=== PATIENT | female | born 1970 | race Caucasian/White ===

== ENCOUNTER 2023-08-07 14:21 | Inpatient (IN) ==
[2023-08-07 15:27] LABS: BASOPHILS # (AUTO) 0.1 X10^3/uL (0.0-0.1); BASOPHILS % (AUTO) 0.7 % (0.2-1.0); EOSINOPHILS # (AUTO) 0.2 x10^3/uL (0.0-0.2); EOSINOPHILS % (AUTO) 1.9 % (0.9-2.9); HEMATOCRIT 33.7 % (36.0-47.0); HEMOGLOBIN 10.9 g/dL (12.0-16.0); LYMPHOCYTES % (AUTO) 15.1 % (21.0-51.0); MEAN CORPUSCULAR HEMOGLOBIN 29.5 pg (27.0-34.0); MEAN CORPUSCULAR HGB CONC 32.4 g/dL (33.0-35.0); MEAN CORPUSCULAR VOLUME 90.8 fL (80.0-100.0); MEAN PLATELET VOLUME 8.2 fL (7.4-11.0); MONOCYTES # (AUTO) 0.8 x10^3/uL (0.3-0.8); MONOCYTES % (AUTO) 5.9 % (0.0-13.0); NEUTROPHILS # (AUTO) 9.9 x10^3/uL (2.2-4.8); NEUTROPHILS % (AUTO) 76.4 % (42.0-75.0); PLATELET COUNT 403 X10^3/uL (150.0-450.0); RED BLOOD COUNT 3.71 X10^6/uL (3.5-5.4); RED CELL DISTRIBUTION WIDTH 13.5 % (11.6-16.5); WHITE BLOOD COUNT 12.9 X10^3/uL (3.6-10.0)
[2023-08-07 15:35] LABS: INR 1.08 (0.8-1.3)
[2023-08-07] MEDS ORDERED: PROVENTIL NEB TX 0.083% 2.5MG/ 3ML NEB PRN (15:36)
[2023-08-07 15:38] LABS: CALCIUM 8.4 mg/dL (8.5-10.1); COR CA(FOR HYPOALB) 9.2 mg/dL (8.5-10.1); CREATININE 1.92 mg/dL (0.55-1.02); POTASSIUM 4.7 mmol/L (3.5-5.1); TOTAL PROTEIN 7.9 g/dL (6.4-8.2)
[2023-08-07 16:13] VITALS: BMI 33.0
[2023-08-07] MEDS: LR 1,000 ML IV 1,000 ML IV SCH (16:30)
[2023-08-07] MEDS ORDERED: HEPARIN SODIUM INJ 5000 UNITS IVP ONE (19:32)
[2023-08-07] MEDS: HEPARIN SODIUM IN D5W 25,000 UNITS/500 ML BAG IV PRN (19:41)
[2023-08-07] MEDS: ZANAFLEX PO SCH (20:34)
[2023-08-07] MEDS: PERCOCET TAB 5/325 MG PO PRN (20:36)
[2023-08-07] MEDS ORDERED: VENTOLIN or PROAIR HFA IN SCH (21:00)
[2023-08-07] MEDS ORDERED: REFLEX: PROVENTIL NEB & PulmiCORT NEB~ NEB SCH (21:00)
[2023-08-07] MEDS: NEURONTIN TAB 600 MG PO SCH (21:13)
--- NOTE | 2023-08-07 21:19 | DR.H&P ---
H&P History & Physical for Day of: H&P Date: 08/07/23 Chief Complaint Chief Complaint: rest pain right leg Allergies Allergies Allergy/AdvReac Type Severity Reaction Status Date / Time Sulfa (Sulfonamide Allergy Verified 07/25/23 06:49 Antibiotics) [SULFA] History of Present Illness History of Present Illness: This is a 52 year old female who has a history of peripheral vascular disease and history of left below knee amputation. Recently seen for ischemia of the right leg and underwent atherectomy and drug-coated balloon angioplasty of a severely diseased right superficial femoral artery and stenting of the left iliac artery. She has continued to have rest pain of the right foot. Patient known to have chronic kidney disease. Currently creatinine is 1.92. Patient continues to smoke cigarettes and has a history of coronary bypass grafting and diabetes with hypertension. Past Medical History Past Medical History: COPD, Coronary Artery Disease, Diabetes, Dyslipidemia and Hypertension Additional Medical History: Chronic kidney disease Past Surgical History Surgical History: Cholecystectomy, Hysterectomy, Joint Replacement and Ortho Surgery Additional Surgical History: history left below knee amputation ,coronary artery bypass grafting Social History Does patient currently use any type of tobacco product: Yes Have you used tobacco products in the last 12 months: Yes Type of Tobacco Use: Cigarettes How many years tobacco product used: 35 Packs per day or dips/chews per day: 1 Does any household member use tobacco: No Alcohol Use: None Drug Use: None Medications Home Medications: Eliquis 2.5 mg BID, Plavix 75 mg daily, aspirin 81 mg daily, vitamin D 1.25 mg daily, Albuterol two Puffs q 12 hours, loratadine 10 mg daily, farxiga 10 mg daily, Zantac 500 mg Q 12 hours, iron sulfate 325 mg daily, Flomax 0.4 mg daily, Lantus insulin as directed, 16 units at bedtime, Symbicort aerosol two Puffs twice a day, cholestyramine daily ,Citalopram 10 mg daily, Neurontin 600 mg qid, Protonix 40 mg daily, Metoprolol extended-release 25 mg BID ,atorvastatin 80 mg daily, Ezetimbe 10 mg daily, losartan 50 mg once a day, NovoLog insulin 16 units before meals as a sliding scale, Percocet 5 mg every 12 hours, Tizanidine 2mg tablets BID, Venlafaxine 1 mg with food BID Labs 08/07/23 15:14 08/07/23 15:14 Labs: Laboratory WBC 12.9 X10^3/uL (3.6-10.0) H 08/07/23 15:14 RBC 3.71 X10^6/uL (3.5-5.4) 08/07/23 15:14 Hgb 10.9 g/dL (12.0-16.0) L 08/07/23 15:14 Hct 33.7 % (36.0-47.0) L 08/07/23 15:14 MCV 90.8 fL (80.0-100.0) 08/07/23 15:14 MCH 29.5 pg (27.0-34.0) 08/07/23 15:14 MCHC 32.4 g/dL (33.0-35.0) L 08/07/23 15:14 RDW 13.5 % (11.6-16.5) 08/07/23 15:14 Plt Count 403 X10^3/uL (150.0-450.0) 08/07/23 15:14 MPV 8.2 fL (7.4-11.0) 08/07/23 15:14 Neut % (Auto) 76.4 % (42.0-75.0) H 08/07/23 15:14 Lymph % (Auto) 15.1 % (21.0-51.0) L 08/07/23 15:14 Vance % (Auto) 5.9 % (0.0-13.0) 08/07/23 15:14 Eos % (Auto) 1.9 % (0.9-2.9) 08/07/23 15:14 Baso % (Auto) 0.7 % (0.2-1.0) 08/07/23 15:14 Neut # (Auto) 9.9 x10^3/uL (2.2-4.8) H 08/07/23 15:14 Lymph # (Auto) 2.0 X10^3/uL (1.3-2.9) 08/07/23 15:14 Vance # (Auto) 0.8 x10^3/uL (0.3-0.8) 08/07/23 15:14 Eos # (Auto) 0.2 x10^3/uL (0.0-0.2) 08/07/23 15:14 Baso # (Auto) 0.1 X10^3/uL (0.0-0.1) 08/07/23 15:14 Absolute Nucleated RBC 0.0 /100WBC 08/07/23 15:14 PT 13.8 SECONDS (11.8-14.3) 08/07/23 15:14 INR Target Range - 08/07/23 15:14 INR 1.08 (0.8-1.3) 08/07/23 15:14 APTT 27.3 SECONDS (22.9-36.5) 08/07/23 15:14 PTT Comment - 08/07/23 15:14 Sodium 138 mmol/L (136-145) 08/07/23 15:14 Corrected Sodium 139 mmol/L (136-145) 08/07/23 15:14 Potassium 4.7 mmol/L (3.5-5.1) 08/07/23 15:14 Chloride 108 mmol/L (98-107) H 08/07/23 15:14 Carbon Dioxide 19.0 mmol/L (21-32) L 08/07/23 15:14 BUN 32 mg/dL (7-18) H 08/07/23 15:14 Creatinine 1.92 mg/dL (0.55-1.02) H 08/07/23 15:14 Est GFR (MDRD) Af Amer 35 (>60) L 08/07/23 15:14 Est GFR (MDRD) Non-Af 29 (>60) L 08/07/23 15:14 Glucose 152 mg/dL (65-99) H 08/07/23 15:14 Calcium 8.4 mg/dL (8.5-10.1) L 08/07/23 15:14 Corrected Calcium 9.2 mg/dL (8.5-10.1) 08/07/23 15:14 Total Bilirubin 0.20 mg/dL (0.2-1.0) 08/07/23 15:14 AST 15 Units/L (15-37) 08/07/23 15:14 ALT 14 Units/L (12-78) 08/07/23 15:14 Alkaline Phosphatase 146 Units/L (46-116) H 08/07/23 15:14 Total Protein 7.9 g/dL (6.4-8.2) 08/07/23 15:14 Albumin 3.0 g/dL (3.4-5.0) L 08/07/23 15:14 Globulin 4.9 g/dL (2.5-4.5) H 08/07/23 15:14 Albumin/Globulin Ratio 0.6 Ratio (1.1-2.1) L 08/07/23 15:14 Review of Systems Constitutional: See HPI Eyes: No Symptoms Reported ENT: No Symptoms Reported Respiratory: Shortness of Breath Cardiovascular: No Symptoms Reported Gastrointestinal: No Symptoms Reported Genitourinary: No Symptoms Reported Musculoskeletal: No Symptoms Reported Skin: No Symptoms Reported Neurological: Other (Neuropathy of legs ) Physical Exam Vital Signs: Vital Signs Temperature 98.3 F Temperature 98.2 F Pulse Rate 79 Pulse Rate 80 Pulse Rate 77 Pulse Rate 73 Pulse Rate 73 Pulse Rate 86 Pulse Rate 75 Pulse Rate 74 Respiratory Rate 18 Respiratory Rate 20 Respiratory Rate 18 Respiratory Rate 25 Respiratory Rate 18 Respiratory Rate 22 Respiratory Rate 29 Respiratory Rate 19 Respiratory Rate 21 Blood Pressure 130/59 Blood Pressure 139/63 Blood Pressure 140/67 Blood Pressure 138/63 Blood Pressure 178/79 Blood Pressure 119/56 Blood Pressure 153/95 Blood Pressure 162/82 O2 Sat by Pulse Oximetry 98 O2 Sat by Pulse Oximetry 99 O2 Sat by Pulse Oximetry 100 O2 Sat by Pulse Oximetry 99 O2 Sat by Pulse Oximetry 100 O2 Sat by Pulse Oximetry 97 O2 Sat by Pulse Oximetry 100 O2 Sat by Pulse Oximetry 100 Oriented: Normal, Time, Person and Place Eyes: Normal Ear: Normal Nose: Normal Throat: Normal Respiratory: Diminished Throughout Cardiovascular: Normal and Other (left below knee amputation, right foot cool with no evidence of cyanosis. Absent posterior tibial Doppler signal problem monophasic signal in the right anterior tibial artery ) : Normal Auscultation: Bowel Sounds: Normal Palpation: Normal Tenderness: Normal Skin: Normal Musculoskeletal: Left (History of left below knee amputation ) Psychiatric: Normal Mood Description: Calm Affect: Normal Speech Pattern: Clear Assessment/Plan (1) Atherosclerosis of [place] arteries of extremities with rest pain, right leg: Status: Acute Plan: will start patient on Heparin drip and obtain CT angiogram of the aorta with run off after hydration due to increased creatinine. If creatinine cannot be corrected may require on table arteriogram to limit the amount of given (2) Type 2 diabetes mellitus without complications: Status: Acute (3) Old myocardial infarction: Status: Acute (4) Tobacco abuse: Status: Acute (5) Dyslipidemia: Status: Acute (6) CKD (chronic kidney disease) stage 3, GFR 30-59 ml/min: Status: Acute
[2023-08-08] MEDS ORDERED: HEPARIN SODIUM INJ 5000 UNITS IVP ONE ×2 (01:56→13:54)
[2023-08-08] MEDS: LR 1,000 ML IV 1,000 ML IV SCH ×2 (03:09→16:52)
[2023-08-08] MEDS: NEURONTIN TAB 600 MG PO SCH ×3 (06:07→22:08)
[2023-08-08 07:55] LABS: BASOPHILS # (AUTO) 0.1 X10^3/uL (0.0-0.1); BASOPHILS % (AUTO) 1.3 % (0.2-1.0); EOSINOPHILS # (AUTO) 0.3 x10^3/uL (0.0-0.2); EOSINOPHILS % (AUTO) 2.7 % (0.9-2.9); HEMATOCRIT 31.6 % (36.0-47.0); HEMOGLOBIN 10.4 g/dL (12.0-16.0); LYMPHOCYTES # (AUTO) 2.8 X10^3/uL (1.3-2.9); LYMPHOCYTES % (AUTO) 27.4 % (21.0-51.0); MEAN CORPUSCULAR HEMOGLOBIN 29.9 pg (27.0-34.0); MEAN CORPUSCULAR HGB CONC 32.8 g/dL (33.0-35.0); MEAN CORPUSCULAR VOLUME 91.1 fL (80.0-100.0); MEAN PLATELET VOLUME 8.3 fL (7.4-11.0); MONOCYTES # (AUTO) 0.8 x10^3/uL (0.3-0.8); MONOCYTES % (AUTO) 7.4 % (0.0-13.0); NEUTROPHILS # (AUTO) 6.3 x10^3/uL (2.2-4.8); NEUTROPHILS % (AUTO) 61.2 % (42.0-75.0); PLATELET COUNT 273 X10^3/uL (150.0-450.0); RED BLOOD COUNT 3.46 X10^6/uL (3.5-5.4); RED CELL DISTRIBUTION WIDTH 13.4 % (11.6-16.5); WHITE BLOOD COUNT 10.3 X10^3/uL (3.6-10.0)
[2023-08-08] MEDS: CELEXA PO SCH (08:08)
[2023-08-08] MEDS: ASPIRIN EC 81 MG PO SCH (08:08)
[2023-08-08] MEDS: CLARITIN PO SCH (08:08)
[2023-08-08 08:09] LABS: ALBUMIN 2.4 g/dL (3.4-5.0); CARBON DIOXIDE 19.3 mmol/L (21-32); COR CA(FOR HYPOALB) 9.3 mg/dL (8.5-10.1); CREATININE 1.72 mg/dL (0.55-1.02); POTASSIUM 4.6 mmol/L (3.5-5.1); TOTAL PROTEIN 6.8 g/dL (6.4-8.2)
[2023-08-08] MEDS: PROTONIX TAB 40 MG PO SCH (08:09)
[2023-08-08] MEDS: FLOMAX PO SCH (08:09)
[2023-08-08] MEDS: ZANAFLEX PO SCH ×2 (08:09→20:27)
[2023-08-08] MEDS: LIPITOR TAB 80 MG PO SCH (08:09)
[2023-08-08] MEDS: TOPROL XL PO SCH (08:22)
[2023-08-08] MEDS: COZAAR PO SCH (08:22)
[2023-08-08] MEDS: ZETIA TAB 10 MG PO SCH (08:22)
[2023-08-08] MEDS ORDERED: OMNIPAQUE 350 mg/mL 100 mL BTL 100 ML ONE (09:04)
[2023-08-08] MEDS ORDERED: OMNIPAQUE 350 mg/mL 50 mL BTL 50 ML ONE (09:04)
[2023-08-08] MEDS ORDERED: NS 100 ML IV 100 ML ONE (09:04)
[2023-08-08] MEDS: PERCOCET TAB 5/325 MG PO PRN ×2 (10:14→21:22)
--- NOTE | 2023-08-08 12:07 | CT ---
EXAM:CTA AORTA WITH RUNOFFHISTORY:CRITICAL LIMB THREATENING ISCHEMIA; amputation left lower leg, heart surgery, hyst, gbCOMPARISON:NoneTECHNIQUE:CT angiogram of the abdomen and pelvis with bilateral lower extremity runoff obtained without and with IV contrast. 3D MIPS images obtained and reviewed. Dose reduction techniques including Automated Exposure Control (AEC) and adjustment of mA and kV were utilized.FINDINGS:The visualized portions of the lower thorax demonstrate no acute process. Coronary calcifications.No acute osseous abnormality. Multilevel degenerative changes in the visualized spine. Right hip arthroplasty hardware. Left [id number]-susp amputation.No evidence of aortic aneurysm or dissection. The celiac artery, SMA, bilateral renal arteries, and PASCUAL appear patent.The right common, internal, and external iliac arteries are patent with multifocal atherosclerotic disease. The right common femoral and deep femoral arteries are patent with multifocal atherosclerotic disease. The right superficial femoral artery is completely occluded with reconstitution of the popliteal artery which is patent. The right anterior tibial, posterior tibial, and peroneal arteries are patent to the right foot with multifocal atherosclerotic narrowing.The left common and internal iliac arteries are patent with multifocal atherosclerotic disease. Left external iliac artery stent is patent. The left common femoral and deep femoral arteries appear patent. The left superficial femoral artery and superficial femoral artery stent are occluded with left SFA graft appearing patent. The left popliteal artery is patent proximally with complete occlusion in the mid popliteal artery and distal reconstitution above the trifurcation. The anterior tibial, posterior tibial, and peroneal arteries are patent to the amputation stump.The liver, spleen, pancreas, bilateral adrenal glands, and bilateral kidneys demonstrate no acute process. Prior cholecystectomy. Heterogeneous enhancement of the left kidney.No evidence of bowel obstruction. The appendix is unremarkable.The bladder is unremarkable. No free air or fluid. Nonaneurysmal aorta.IMPRESSION:Left external iliac and superficial femoral artery stents/grafts are patent. Short-segment occlusion of the left popliteal artery with reconstitution just proximal to the trifurcation.Occlusion of the right superficial femoral artery with collateral flow and reconstitution at the popliteal artery and patent three-vessel runoff to the right foot.Heterogeneous enhancement of the left kidney which may be due to phase of contrast. Recommend renal ultrasound for further evaluation when clinically feasible.THIS IS AN ELECTRONICALLY VERIFIED FINAL [id number]/08/2023 12:02 PM - Electronically signed by Ward Carbajal MD
[2023-08-08] MEDS ORDERED: HEPARIN SODIUM INJ 5000 UNITS ONE (14:01)
[2023-08-08] MEDS: NovoLIN R (or HumuLIN R) SC PRN ×2 (16:51→22:08)
[2023-08-08] MEDS: HEPARIN SODIUM IN D5W 25,000 UNITS/500 ML BAG IV PRN (17:51)
[2023-08-08] MEDS ORDERED: HIBICLENS WASH EXT ONE (20:15)
[2023-08-08] MEDS ORDERED: HIBICLENS WASH ONE (20:20)
--- NOTE | 2023-08-08 23:29 | NOTE.SOAP ---
Soap Note Note for Day of Date of Exam: 08/08/23 Subjective Data Subjective Data: Patient had atherectomy and drug coated balloon angioplasty of the right SFA . On aspirin and Xarelto. HAs c/o rest pain right leg. Admitted and placed on heparin drip. Had to hydrate for Cr=1.92 and CTA obtained and it shows occlusion of the right SFA and reconstitution of the right popliteal artery with 3 vessel runoff. Objective Data Pulse Rate: 64 Respiratory Rate: 20 Blood Pressure: 128/61 O2 Sat by Pulse Oximetry: 100 Objective Data: Cr=1.72 Right leg with pain of thigh. Mild coolness of the right foot. Well healed right great toe amputation. Assessment Assessment: Critical ischemia right leg with right SFA occlusion. Plan Plan: Has chronic kidney disease and did not want to take to the OR after receiving dye load and would require more dye. Will continue heparin drip and plan intervention right leg on TueAug 10.
[2023-08-09] MEDS: LR 1,000 ML IV 1,000 ML IV SCH ×3 (00:39→21:36)
[2023-08-09 03:55] LABS: BASOPHILS # (AUTO) 0.1 X10^3/uL (0.0-0.1); EOSINOPHILS # (AUTO) 0.3 x10^3/uL (0.0-0.2); EOSINOPHILS % (AUTO) 3.8 % (0.9-2.9); HEMATOCRIT 32.5 % (36.0-47.0); HEMOGLOBIN 10.9 g/dL (12.0-16.0); LYMPHOCYTES # (AUTO) 2.4 X10^3/uL (1.3-2.9); MEAN CORPUSCULAR HGB CONC 33.4 g/dL (33.0-35.0); MEAN CORPUSCULAR VOLUME 89.8 fL (80.0-100.0); MEAN PLATELET VOLUME 8.3 fL (7.4-11.0); MONOCYTES # (AUTO) 0.7 x10^3/uL (0.3-0.8); MONOCYTES % (AUTO) 7.2 % (0.0-13.0); NEUTROPHILS # (AUTO) 5.7 x10^3/uL (2.2-4.8); PLATELET COUNT 329 X10^3/uL (150.0-450.0); RED BLOOD COUNT 3.62 X10^6/uL (3.5-5.4); RED CELL DISTRIBUTION WIDTH 13.9 % (11.6-16.5); WHITE BLOOD COUNT 9.1 X10^3/uL (3.6-10.0)
[2023-08-09 04:07] LABS: ALBUMIN 2.5 g/dL (3.4-5.0); CALCIUM 7.7 mg/dL (8.5-10.1); CARBON DIOXIDE 25.5 mmol/L (21-32); COR CA(FOR HYPOALB) 8.9 mg/dL (8.5-10.1); CREATININE 1.54 mg/dL (0.55-1.02); POTASSIUM 4.1 mmol/L (3.5-5.1); TOTAL PROTEIN 6.9 g/dL (6.4-8.2)
[2023-08-09] MEDS: NovoLIN R (or HumuLIN R) SC PRN ×3 (05:41→16:37)
[2023-08-09] MEDS: NEURONTIN TAB 600 MG PO SCH ×3 (05:42→21:37)
[2023-08-09] MEDS: PERCOCET TAB 5/325 MG PO PRN ×2 (07:20→22:06)
[2023-08-09] MEDS: ASPIRIN EC 81 MG PO SCH (08:42)
[2023-08-09] MEDS: CLARITIN PO SCH (08:43)
[2023-08-09] MEDS: FLOMAX PO SCH (08:43)
[2023-08-09] MEDS: COZAAR PO SCH ×2 (08:43→22:05)
[2023-08-09] MEDS: CELEXA PO SCH (08:43)
[2023-08-09] MEDS: ZANAFLEX PO SCH ×2 (08:44→21:37)
[2023-08-09] MEDS: ZETIA TAB 10 MG PO SCH (08:44)
[2023-08-09] MEDS: PROTONIX TAB 40 MG PO SCH (08:44)
[2023-08-09] MEDS: LIPITOR TAB 80 MG PO SCH (08:44)
[2023-08-09] MEDS: TOPROL XL PO SCH (08:44)
[2023-08-09] MEDS: HEPARIN SODIUM IN D5W 25,000 UNITS/500 ML BAG IV PRN (14:07)
--- NOTE | 2023-08-09 16:08 | NOTE.SOAP ---
Soap Note Note for Day of Date of Exam: 08/09/23 Subjective Data Subjective Data: Rest pain right leg stable. Patient remains on Heparin drip. With hydration creatinine down to 1.54. Planning intervention of occluded right superficial femoral artery tomorrow. Objective Data Pulse Rate: 63 Respiratory Rate: 16 Blood Pressure: 142/66 O2 Sat by Pulse Oximetry: 98 Objective Data: Right foot cool.Cr=1.54, Hgb =10.9 Assessment Assessment: critical ischemia right leg Plan Plan: Right leg arteriogram , probable stenting right superficial femoral artery tomorrow.
[2023-08-09] MEDS ORDERED: HIBICLENS WASH ONE (20:00)
[2023-08-09] MEDS: COLACE CAP 100 MG PO SCH (21:37)
[2023-08-10] MEDS: NEURONTIN TAB 600 MG PO SCH ×3 (05:40→21:00)
[2023-08-10 07:33] LABS: BASOPHILS # (AUTO) 0.1 X10^3/uL (0.0-0.1); BASOPHILS % (AUTO) 0.7 % (0.2-1.0); EOSINOPHILS # (AUTO) 0.3 x10^3/uL (0.0-0.2); EOSINOPHILS % (AUTO) 2.6 % (0.9-2.9); HEMATOCRIT 33.1 % (36.0-47.0); LYMPHOCYTES # (AUTO) 1.9 X10^3/uL (1.3-2.9); LYMPHOCYTES % (AUTO) 18.4 % (21.0-51.0); MEAN CORPUSCULAR HEMOGLOBIN 29.9 pg (27.0-34.0); MEAN CORPUSCULAR HGB CONC 33.1 g/dL (33.0-35.0); MEAN CORPUSCULAR VOLUME 90.3 fL (80.0-100.0); MEAN PLATELET VOLUME 8.7 fL (7.4-11.0); MONOCYTES # (AUTO) 0.7 x10^3/uL (0.3-0.8); MONOCYTES % (AUTO) 7.4 % (0.0-13.0); NEUTROPHILS # (AUTO) 7.1 x10^3/uL (2.2-4.8); NEUTROPHILS % (AUTO) 70.9 % (42.0-75.0); PLATELET COUNT 299 X10^3/uL (150.0-450.0); RED BLOOD COUNT 3.66 X10^6/uL (3.5-5.4); RED CELL DISTRIBUTION WIDTH 13.6 % (11.6-16.5); WHITE BLOOD COUNT 10.1 X10^3/uL (3.6-10.0)
[2023-08-10 07:39] LABS: ALBUMIN 2.4 g/dL (3.4-5.0); CALCIUM 7.8 mg/dL (8.5-10.1); CARBON DIOXIDE 23.7 mmol/L (21-32); COR CA(FOR HYPOALB) 9.1 mg/dL (8.5-10.1); CREATININE 1.71 mg/dL (0.55-1.02); TOTAL PROTEIN 6.7 g/dL (6.4-8.2)
[2023-08-10] MEDS: HEPARIN SODIUM IN D5W 25,000 UNITS/500 ML BAG IV PRN (08:19)
[2023-08-10] MEDS ORDERED: FENTANYL VIAL INJ 100 mcg ONE (08:33)
[2023-08-10] MEDS ORDERED: KETAMINE 50 MG/5 ML-NACL SYRNG ONE (08:33)
[2023-08-10] MEDS ORDERED: VERSED ONE (08:33)
[2023-08-10] MEDS ORDERED: DIPRIVAN VIAL 20 ML ONE (08:34)
[2023-08-10] MEDS ORDERED: ZOFRAN INJ 4 MG VIAL ONE (08:34)
[2023-08-10] MEDS ORDERED: HEPARIN SODIUM INJ 5000 UNITS ONE (08:34)
[2023-08-10] MEDS ORDERED: ROBINUL ONE (08:34)
[2023-08-10] MEDS ORDERED: PRECEDEX INJ VIAL IVP ONE (08:34)
[2023-08-10] MEDS ORDERED: OFIRMEV IV 1000 MG VIAL 1,000 MG/100 ML VIAL IV ONE (08:34)
[2023-08-10] MEDS ORDERED: PEPCID 20 MG VIAL ONE (08:34)
[2023-08-10] MEDS ORDERED: PROTAMINE SULFATE 50 MG VIAL ONE (08:34)
[2023-08-10] MEDS ORDERED: DECADRON INJ ONE (08:35)
[2023-08-10] MEDS ORDERED: NS 1,000 ML IV 1,000 ML ONE (08:37)
[2023-08-10] MEDS ORDERED: ANCEF VIAL 1 GRAM ONE (08:37)
[2023-08-10] MEDS ORDERED: NS 100 ML IV 100 ML ONE (08:37)
[2023-08-10] MEDS ORDERED: MARCAINE 0.5% ONE (09:39)
[2023-08-10] MEDS ORDERED: HEPARIN SODIUM IN D5W 75,000 UNITS/1,500 ML BAG ONE (09:40)
[2023-08-10] MEDS ORDERED: XYLOCAINE 2 % (PLAIN) ONE (10:03)
[2023-08-10] MEDS: ASPIRIN EC 81 MG PO SCH (10:07)
[2023-08-10] MEDS: PROTONIX TAB 40 MG PO SCH (10:07)
[2023-08-10] MEDS: ZANAFLEX PO SCH ×2 (10:08→20:59)
[2023-08-10] MEDS: ZETIA TAB 10 MG PO SCH (10:08)
[2023-08-10] MEDS: TOPROL XL PO SCH ×2 (10:10→10:11)
[2023-08-10] MEDS: MILK OF MAGNESIA PO SCH (10:11)
[2023-08-10] MEDS: FLOMAX PO SCH (10:12)
[2023-08-10] MEDS: CELEXA PO SCH (10:12)
[2023-08-10] MEDS: COZAAR PO SCH (10:12)
[2023-08-10] MEDS ORDERED: VISIPAQUE 100 ML ONE (10:13)
[2023-08-10] MEDS: LIPITOR TAB 80 MG PO SCH (10:13)
[2023-08-10] MEDS: CLARITIN PO SCH (10:13)
[2023-08-10] MEDS ORDERED: EPHEDRINE SULFATE INJ ONE (10:27)
[2023-08-10] MEDS ORDERED: NEO-SYNEPHRINE INJ ONE (10:32)
[2023-08-10] MEDS ORDERED: NS 500 ML IV 500 ML IV ONE (10:46)
[2023-08-10] MEDS: NovoLIN R (or HumuLIN R) SC PRN ×3 (12:55→21:05)
[2023-08-10] MEDS: XARELTO PO SCH ×2 (15:20→20:59)
[2023-08-10] MEDS: PERCOCET TAB 5/325 MG PO PRN (19:29)
[2023-08-10] MEDS: COLACE CAP 100 MG PO SCH (20:59)
[2023-08-10] MEDS: LR 1,000 ML IV 1,000 ML IV SCH (21:52)
[2023-08-11] MEDS: PERCOCET TAB 5/325 MG PO PRN (03:13)
[2023-08-11] MEDS: NEURONTIN TAB 600 MG PO SCH (05:09)
[2023-08-11] MEDS: NovoLIN R (or HumuLIN R) SC PRN (05:37)
[2023-08-11] MEDS: TOPROL XL PO SCH ×2 (05:38→09:23)
[2023-08-11] MEDS: FLOMAX PO SCH (09:20)
[2023-08-11] MEDS: ZANAFLEX PO SCH (09:20)
[2023-08-11] MEDS: PROTONIX TAB 40 MG PO SCH (09:20)
[2023-08-11] MEDS: CLARITIN PO SCH (09:21)
[2023-08-11] MEDS: ASPIRIN EC 81 MG PO SCH (09:21)
[2023-08-11] MEDS: XARELTO PO SCH (09:21)
[2023-08-11] MEDS: LIPITOR TAB 80 MG PO SCH (09:21)
[2023-08-11] MEDS: COZAAR PO SCH (09:22)
[2023-08-11] MEDS: MILK OF MAGNESIA PO SCH (09:22)
[2023-08-11] MEDS: CELEXA PO SCH (09:22)
[2023-08-11] MEDS: ZETIA TAB 10 MG PO SCH (09:22)
--- NOTE | 2023-08-11 09:33 | W.DIS.FURT ---
Summary of Discharge Discharge Summary of Date Date of Exam: 08/11/23 Admission Date Date of Admission: 08/07/23 Admission Diagnosis Hospital Course: 52 year old female with history of coronary artery disease status post CABG in the past. Also with diabetes and hypertension and history of left below knee amputation. She presented several weeks ago with rest pain of the right leg and several weeks ago underwent atherectomy and drug-coated balloon angioplasty of the right superficial femoral artery as well as the stenting of the left iliac artery. Initially she had relief of pain but returned back with rest pain and CT angiogram is consistent with complete occlusion of the right superficial femoral artery. She was maintained on a Heparin drip and taken to the operating Suite on August 10 where she underwent atherectomy and drug-coated stenting of the occluded right superficial femoral artery. She has done well post- procedure and will be discharged home on her usual medications plus Xarelto 2.5 mg BID and daily aspirin 81 mg daily. She will follow up with me in one week. Vital Signs: Vital Signs (72 hours) 08/08/23 23:29 08/09/23 16:08 08/08/23 10:14 Temperature Pulse Rate 64 63 Respiratory Rate 20 16 18 Blood Pressure 128/61 142/66 O2 Sat by Pulse Oximetry 100 98 Oxygen Delivery Method Oxygen Flow Rate 08/08/23 10:11 08/08/23 10:12 08/08/23 10:12 Temperature Pulse Rate 74 73 Respiratory Rate 18 5 L Blood Pressure 149/70 O2 Sat by Pulse Oximetry 100 Oxygen Delivery Method Oxygen Flow Rate 08/08/23 10:15 08/08/23 10:30 08/08/23 10:45 Temperature Pulse Rate 72 73 71 Respiratory Rate 13 13 10 L Blood Pressure O2 Sat by Pulse Oximetry 100 99 99 Oxygen Delivery Method Oxygen Flow Rate 08/08/23 11:00 08/08/23 11:15 08/08/23 11:30 Temperature Pulse Rate 70 67 68 Respiratory Rate 11 L 12 11 L Blood Pressure O2 Sat by Pulse Oximetry 98 97 98 Oxygen Delivery Method Oxygen Flow Rate 08/08/23 11:45 08/08/23 12:00 08/08/23 12:15 Temperature Pulse Rate 67 68 66 Respiratory Rate 11 L 10 L 12 Blood Pressure O2 Sat by Pulse Oximetry 98 100 100 Oxygen Delivery Method Oxygen Flow Rate 08/08/23 12:30 08/08/23 12:45 08/08/23 13:01 Temperature Pulse Rate 66 67 75 Respiratory Rate 11 L 11 L 15 Blood Pressure O2 Sat by Pulse Oximetry 100 100 Oxygen Delivery Method Oxygen Flow Rate 08/08/23 13:06 08/08/23 13:06 08/08/23 11:14 Temperature Pulse Rate 71 Respiratory Rate 19 18 Blood Pressure 143/60 O2 Sat by Pulse Oximetry 100 Oxygen Delivery Method Oxygen Flow Rate 08/08/23 13:15 08/08/23 13:30 08/08/23 13:45 Temperature Pulse Rate 69 67 64 Respiratory Rate 34 H 17 16 Blood Pressure O2 Sat by Pulse Oximetry 96 99 100 Oxygen Delivery Method Oxygen Flow Rate 08/08/23 14:00 08/08/23 14:01 08/08/23 14:01 Temperature Pulse Rate 63 64 Respiratory Rate 22 19 Blood Pressure 136/61 O2 Sat by Pulse Oximetry 99 99 Oxygen Delivery Method Oxygen Flow Rate 08/08/23 15:04 08/08/23 14:15 08/08/23 14:30 Temperature 97.6 F Pulse Rate 62 62 Respiratory Rate 16 14 Blood Pressure O2 Sat by Pulse Oximetry 100 100 Oxygen Delivery Method Oxygen Flow Rate 08/08/23 14:45 08/08/23 15:00 08/08/23 15:00 Temperature Pulse Rate 59 L 59 L Respiratory Rate 14 7 L Blood Pressure 135/63 O2 Sat by Pulse Oximetry 100 100 Oxygen Delivery Method Oxygen Flow Rate 08/08/23 15:15 08/08/23 15:30 08/08/23 15:45 Temperature Pulse Rate 62 61 64 Respiratory Rate 18 12 18 Blood Pressure O2 Sat by Pulse Oximetry 100 100 100 Oxygen Delivery Method Oxygen Flow Rate 08/08/23 16:16 08/08/23 16:18 08/08/23 16:18 Temperature Pulse Rate 67 65 Respiratory Rate 40 H 17 Blood Pressure 147/67 O2 Sat by Pulse Oximetry 100 Oxygen Delivery Method Oxygen Flow Rate 08/08/23 16:30 08/08/23 16:45 08/08/23 17:00 Temperature Pulse Rate 62 66 61 Respiratory Rate 22 54 H 25 H Blood Pressure O2 Sat by Pulse Oximetry 100 93 L 100 Oxygen Delivery Method Oxygen Flow Rate 08/08/23 17:15 08/08/23 17:20 08/08/23 17:20 Temperature Pulse Rate 60 60 Respiratory Rate 21 38 H Blood Pressure 156/72 O2 Sat by Pulse Oximetry 100 100 Oxygen Delivery Method Oxygen Flow Rate 08/08/23 17:30 08/08/23 17:45 08/08/23 18:00 Temperature Pulse Rate 64 60 Respiratory Rate 20 16 Blood Pressure 159/77 O2 Sat by Pulse Oximetry 100 Oxygen Delivery Method Oxygen Flow Rate 08/08/23 18:00 08/08/23 18:15 08/08/23 19:00 Temperature Pulse Rate 60 58 L Respiratory Rate 32 H 14 Blood Pressure O2 Sat by Pulse Oximetry 100 100 Oxygen Delivery Method Room Air Oxygen Flow Rate 08/08/23 18:30 08/08/23 18:45 08/08/23 19:00 Temperature Pulse Rate 62 60 61 Respiratory Rate 15 21 16 Blood Pressure O2 Sat by Pulse Oximetry 99 98 100 Oxygen Delivery Method Oxygen Flow Rate 08/08/23 19:00 08/08/23 19:15 08/08/23 19:30 Temperature Pulse Rate 61 65 Respiratory Rate 15 28 H Blood Pressure 168/89 O2 Sat by Pulse Oximetry 100 97 Oxygen Delivery Method Oxygen Flow Rate 08/08/23 19:45 08/08/23 20:00 08/08/23 20:01 Temperature Pulse Rate 59 L 59 L Respiratory Rate 17 14 Blood Pressure 143/65 O2 Sat by Pulse Oximetry 100 100 Oxygen Delivery Method Oxygen Flow Rate 08/08/23 20:01 08/08/23 21:22 08/08/23 20:16 Temperature Pulse Rate 58 L 63 Respiratory Rate 16 19 24 Blood Pressure O2 Sat by Pulse Oximetry 99 Oxygen Delivery Method Oxygen Flow Rate 08/08/23 20:30 08/08/23 20:45 08/08/23 21:00 Temperature Pulse Rate 61 61 62 Respiratory Rate 22 15 15 Blood Pressure O2 Sat by Pulse Oximetry 99 100 100 Oxygen Delivery Method Oxygen Flow Rate 08/08/23 21:00 08/08/23 21:15 08/08/23 21:30 Temperature Pulse Rate 61 61 Respiratory Rate 18 29 H Blood Pressure 168/74 O2 Sat by Pulse Oximetry 100 100 Oxygen Delivery Method Oxygen Flow Rate 08/08/23 21:45 08/08/23 22:00 08/08/23 22:01 Temperature Pulse Rate 62 61 61 Respiratory Rate 30 H 22 14 Blood Pressure O2 Sat by Pulse Oximetry 98 100 100 Oxygen Delivery Method Oxygen Flow Rate 08/08/23 22:01 08/08/23 21:00 08/08/23 22:21 Temperature Pulse Rate Respiratory Rate Blood Pressure 144/68 O2 Sat by Pulse Oximetry 85 L Oxygen Delivery Method Room Air Oxygen Flow Rate 08/08/23 22:30 08/08/23 22:45 08/08/23 23:00 Temperature Pulse Rate 62 63 66 Respiratory Rate 39 H 18 39 H Blood Pressure O2 Sat by Pulse Oximetry 100 100 100 Oxygen Delivery Method Oxygen Flow Rate 08/08/23 23:04 08/08/23 23:04 08/08/23 23:15 Temperature Pulse Rate 64 61 Respiratory Rate 20 15 Blood Pressure 128/61 O2 Sat by Pulse Oximetry 100 100 Oxygen Delivery Method Oxygen Flow Rate 08/08/23 23:30 08/08/23 23:45 08/09/23 00:00 Temperature Pulse Rate 61 59 L 58 L Respiratory Rate 16 17 13 Blood Pressure O2 Sat by Pulse Oximetry 100 100 99 Oxygen Delivery Method Oxygen Flow Rate 08/09/23 00:01 08/09/23 00:01 08/09/23 00:15 Temperature 98.2 F Pulse Rate 59 L 59 L Respiratory Rate 9 L 15 Blood Pressure 167/79 O2 Sat by Pulse Oximetry 98 98 Oxygen Delivery Method Oxygen Flow Rate 08/08/23 22:22 08/09/23 00:30 08/09/23 00:45 Temperature Pulse Rate 61 58 L Respiratory Rate 19 9 L 12 Blood Pressure O2 Sat by Pulse Oximetry 98 99 Oxygen Delivery Method Oxygen Flow Rate 08/09/23 01:00 08/09/23 01:00 08/09/23 01:15 Temperature Pulse Rate 59 L 68 Respiratory Rate 14 25 H Blood Pressure 158/74 O2 Sat by Pulse Oximetry 99 Oxygen Delivery Method Oxygen Flow Rate 08/09/23 01:30 08/09/23 01:45 08/09/23 02:00 Temperature Pulse Rate 66 65 Respiratory Rate 29 H 26 H Blood Pressure 170/76 O2 Sat by Pulse Oximetry 95 100 Oxygen Delivery Method Oxygen Flow Rate 08/09/23 02:00 08/09/23 02:15 08/09/23 02:30 Temperature Pulse Rate 63 62 63 Respiratory Rate 21 19 28 H Blood Pressure O2 Sat by Pulse Oximetry 99 100 100 Oxygen Delivery Method Oxygen Flow Rate 08/09/23 02:45 08/09/23 03:00 08/09/23 03:00 Temperature Pulse Rate 61 62 Respiratory Rate 17 18 Blood Pressure 150/71 O2 Sat by Pulse Oximetry 99 100 Oxygen Delivery Method Oxygen Flow Rate 08/09/23 03:15 08/09/23 03:30 08/09/23 03:45 Temperature Pulse Rate 62 58 L 65 Respiratory Rate 22 14 11 L Blood Pressure O2 Sat by Pulse Oximetry 100 99 100 Oxygen Delivery Method Oxygen Flow Rate 08/09/23 04:00 08/09/23 04:00 08/09/23 04:15 Temperature 97.6 F Pulse Rate 67 Respiratory Rate 15 0 L Blood Pressure 133/60 133/60 O2 Sat by Pulse Oximetry 100 98 Oxygen Delivery Method Oxygen Flow Rate 08/09/23 05:00 08/09/23 06:00 08/09/23 07:20 Temperature Pulse Rate 72 75 Respiratory Rate 12 26 H 19 Blood Pressure 115/56 152/78 O2 Sat by Pulse Oximetry 95 98 Oxygen Delivery Method Room Air Room Air Oxygen Flow Rate 08/09/23 04:30 08/09/23 05:00 08/09/23 05:00 Temperature Pulse Rate 74 72 Respiratory Rate 10 L 12 Blood Pressure 115/56 O2 Sat by Pulse Oximetry 98 95 Oxygen Delivery Method Oxygen Flow Rate 08/09/23 05:15 08/09/23 05:30 08/09/23 05:45 Temperature Pulse Rate 73 74 78 Respiratory Rate 11 L 10 L 33 H Blood Pressure O2 Sat by Pulse Oximetry 94 L 96 99 Oxygen Delivery Method Oxygen Flow Rate 08/09/23 06:00 08/09/23 06:00 08/09/23 06:15 Temperature Pulse Rate 73 72 Respiratory Rate 15 19 Blood Pressure 152/78 O2 Sat by Pulse Oximetry 100 99 Oxygen Delivery Method Oxygen Flow Rate 08/09/23 06:30 08/09/23 06:45 08/09/23 07:00 Temperature Pulse Rate 66 69 Respiratory Rate 14 23 Blood Pressure 163/77 O2 Sat by Pulse Oximetry 99 99 Oxygen Delivery Method Oxygen Flow Rate 08/09/23 07:00 08/09/23 07:15 08/09/23 08:20 Temperature Pulse Rate 68 69 Respiratory Rate 13 13 19 Blood Pressure O2 Sat by Pulse Oximetry 99 99 Oxygen Delivery Method Oxygen Flow Rate 08/09/23 07:00 08/09/23 07:30 08/09/23 07:45 Temperature Pulse Rate 67 68 Respiratory Rate 16 12 Blood Pressure O2 Sat by Pulse Oximetry 98 100 Oxygen Delivery Method Room Air Oxygen Flow Rate 08/09/23 08:00 08/09/23 08:00 08/09/23 08:18 Temperature Pulse Rate 67 75 Respiratory Rate 13 37 H Blood Pressure 149/77 O2 Sat by Pulse Oximetry 98 Oxygen Delivery Method Oxygen Flow Rate 08/09/23 08:30 08/09/23 08:45 08/09/23 09:00 Temperature Pulse Rate 74 75 Respiratory Rate 23 30 H Blood Pressure 142/73 O2 Sat by Pulse Oximetry 98 100 Oxygen Delivery Method Oxygen Flow Rate 08/09/23 09:00 08/09/23 09:15 08/09/23 09:30 Temperature Pulse Rate 71 73 78 Respiratory Rate 22 49 H 61 H Blood Pressure O2 Sat by Pulse Oximetry 99 100 90 L Oxygen Delivery Method Oxygen Flow Rate 08/09/23 09:45 08/09/23 10:00 08/09/23 10:00 Temperature Pulse Rate 72 71 Respiratory Rate 36 H 29 H Blood Pressure 156/82 O2 Sat by Pulse Oximetry 100 100 Oxygen Delivery Method Oxygen Flow Rate 08/09/23 10:15 08/09/23 10:30 08/09/23 10:45 Temperature Pulse Rate 69 66 65 Respiratory Rate 23 20 18 Blood Pressure O2 Sat by Pulse Oximetry 100 100 99 Oxygen Delivery Method Oxygen Flow Rate 08/09/23 11:00 08/09/23 11:00 08/09/23 11:15 Temperature Pulse Rate 62 59 L Respiratory Rate 12 12 Blood Pressure 136/63 O2 Sat by Pulse Oximetry 97 97 Oxygen Delivery Method Oxygen Flow Rate 08/09/23 11:30 08/09/23 11:45 08/09/23 12:00 Temperature Pulse Rate 59 L 59 L Respiratory Rate 12 11 L Blood Pressure 123/61 O2 Sat by Pulse Oximetry 98 99 Oxygen Delivery Method Oxygen Flow Rate 08/09/23 12:00 08/09/23 12:15 08/09/23 12:30 Temperature Pulse Rate 58 L 59 L 58 L Respiratory Rate 10 L 10 L 10 L Blood Pressure O2 Sat by Pulse Oximetry 97 96 96 Oxygen Delivery Method Oxygen Flow Rate 08/09/23 12:45 08/09/23 12:59 08/09/23 13:00 Temperature Pulse Rate 57 L 57 L Respiratory Rate 10 L 10 L Blood Pressure 130/67 O2 Sat by Pulse Oximetry 95 96 Oxygen Delivery Method Oxygen Flow Rate 08/09/23 08:00 08/09/23 12:00 08/09/23 13:00 Temperature 97.6 F 97.7 F Pulse Rate 57 L Respiratory Rate 10 L Blood Pressure O2 Sat by Pulse Oximetry 95 Oxygen Delivery Method Oxygen Flow Rate 08/09/23 13:15 08/09/23 13:30 08/09/23 13:45 Temperature Pulse Rate 57 L 56 L 56 L Respiratory Rate 10 L 11 L 12 Blood Pressure O2 Sat by Pulse Oximetry 95 95 96 Oxygen Delivery Method Oxygen Flow Rate 08/09/23 14:00 08/09/23 14:00 08/09/23 14:15 Temperature Pulse Rate 56 L 56 L Respiratory Rate 11 L 10 L Blood Pressure 130/65 O2 Sat by Pulse Oximetry 96 97 Oxygen Delivery Method Oxygen Flow Rate 08/09/23 14:30 08/09/23 14:45 08/09/23 15:00 Temperature Pulse Rate 56 L 56 L 63 Respiratory Rate 10 L 11 L 18 Blood Pressure O2 Sat by Pulse Oximetry 96 96 97 Oxygen Delivery Method Oxygen Flow Rate 08/09/23 15:01 08/09/23 15:01 08/09/23 15:15 Temperature Pulse Rate 63 63 Respiratory Rate 22 20 Blood Pressure 142/66 O2 Sat by Pulse Oximetry 96 97 Oxygen Delivery Method Oxygen Flow Rate 08/09/23 15:30 08/09/23 15:45 08/09/23 16:10 Temperature Pulse Rate 64 63 Respiratory Rate 21 16 44 H Blood Pressure O2 Sat by Pulse Oximetry 99 98 Oxygen Delivery Method Oxygen Flow Rate 08/09/23 16:15 08/09/23 16:30 08/09/23 16:45 Temperature Pulse Rate 63 61 62 Respiratory Rate 14 12 15 Blood Pressure O2 Sat by Pulse Oximetry 99 98 99 Oxygen Delivery Method Oxygen Flow Rate 08/09/23 17:00 08/09/23 17:15 08/09/23 17:30 Temperature Pulse Rate 59 L 60 62 Respiratory Rate 12 18 16 Blood Pressure O2 Sat by Pulse Oximetry 98 98 99 Oxygen Delivery Method Oxygen Flow Rate 08/09/23 17:45 08/09/23 19:00 08/09/23 19:00 Temperature 97.7 F Pulse Rate 67 63 Respiratory Rate 22 23 Blood Pressure 167/77 O2 Sat by Pulse Oximetry 90 L 99 Oxygen Delivery Method Room Air Oxygen Flow Rate 08/09/23 20:00 08/09/23 22:06 08/09/23 21:00 Temperature Pulse Rate 62 67 Respiratory Rate 16 18 18 Blood Pressure 162/76 170/71 O2 Sat by Pulse Oximetry 99 99 Oxygen Delivery Method Oxygen Flow Rate 08/09/23 22:00 08/09/23 23:00 08/09/23 23:06 Temperature 97.9 F Pulse Rate 74 68 Respiratory Rate 24 16 18 Blood Pressure 157/74 162/77 O2 Sat by Pulse Oximetry 99 99 Oxygen Delivery Method Oxygen Flow Rate 08/10/23 00:00 08/10/23 01:00 08/09/23 20:45 Temperature Pulse Rate 78 70 Respiratory Rate 22 16 Blood Pressure 129/61 167/68 O2 Sat by Pulse Oximetry 99 96 Oxygen Delivery Method Room Air Oxygen Flow Rate 08/10/23 02:00 08/10/23 03:00 08/10/23 04:00 Temperature 97.8 F Pulse Rate 63 62 66 Respiratory Rate 14 14 12 Blood Pressure 148/76 145/70 143/63 O2 Sat by Pulse Oximetry 96 95 99 Oxygen Delivery Method Oxygen Flow Rate 08/10/23 05:00 08/10/23 06:00 08/10/23 07:00 Temperature Pulse Rate 67 74 Respiratory Rate 16 20 Blood Pressure 155/75 148/83 O2 Sat by Pulse Oximetry 98 96 Oxygen Delivery Method Room Air Room Air Room Air Oxygen Flow Rate 08/10/23 08:49 08/10/23 07:00 08/10/23 08:00 Temperature 97.9 F Pulse Rate 74 69 66 Respiratory Rate 17 11 L 11 L Blood Pressure 141/71 137/66 127/63 O2 Sat by Pulse Oximetry 95 95 96 Oxygen Delivery Method Room Air Room Air Room Air Oxygen Flow Rate 08/10/23 11:30 08/10/23 11:45 08/10/23 12:00 Temperature 98.4 F 98.4 F 98.5 F Pulse Rate 84 85 85 Respiratory Rate 10 L 8 L 8 L Blood Pressure 138/65 134/64 135/65 O2 Sat by Pulse Oximetry 98 97 98 Oxygen Delivery Method Nasal Cannula Nasal Cannula Nasal Cannula Oxygen Flow Rate 2 2 2 08/10/23 12:15 08/10/23 12:30 08/10/23 13:30 Temperature 98.4 F 98.6 F 98.5 F Pulse Rate 86 86 86 Respiratory Rate 8 L 10 L 8 L Blood Pressure 110/63 129/63 135/65 O2 Sat by Pulse Oximetry 98 98 99 Oxygen Delivery Method Nasal Cannula Nasal Cannula Nasal Cannula Oxygen Flow Rate 2 2 2 08/10/23 14:30 08/10/23 15:30 08/10/23 17:00 Temperature 98.5 F 97.2 F L Pulse Rate 86 88 82 Respiratory Rate 14 21 15 Blood Pressure 124/70 112/54 105/53 O2 Sat by Pulse Oximetry 99 99 97 Oxygen Delivery Method Nasal Cannula Nasal Cannula Nasal Cannula Oxygen Flow Rate 2 2 2 08/10/23 18:00 08/10/23 19:29 08/10/23 19:00 Temperature 98.1 F Pulse Rate 87 93 H Respiratory Rate 23 20 26 H Blood Pressure 149/75 127/65 O2 Sat by Pulse Oximetry 96 98 Oxygen Delivery Method Room Air Room Air Oxygen Flow Rate 08/10/23 19:00 08/10/23 20:00 08/10/23 21:00 Temperature Pulse Rate 86 84 Respiratory Rate 16 17 Blood Pressure 152/69 154/72 O2 Sat by Pulse Oximetry 97 98 Oxygen Delivery Method Room Air Room Air Room Air Oxygen Flow Rate 08/10/23 20:29 08/10/23 22:00 08/10/23 23:00 Temperature Pulse Rate 84 81 Respiratory Rate 20 24 17 Blood Pressure 165/77 158/74 O2 Sat by Pulse Oximetry 96 96 Oxygen Delivery Method Room Air Room Air Oxygen Flow Rate 08/11/23 00:00 08/11/23 01:00 08/11/23 02:00 Temperature 97.8 F Pulse Rate 82 86 86 Respiratory Rate 17 12 12 Blood Pressure 156/75 154/79 165/86 O2 Sat by Pulse Oximetry 100 94 L 95 Oxygen Delivery Method Room Air Room Air Room Air Oxygen Flow Rate 08/11/23 03:00 08/11/23 03:13 08/11/23 04:00 Temperature 97.9 F Pulse Rate 93 H 84 Respiratory Rate 14 20 16 Blood Pressure 165/85 162/79 O2 Sat by Pulse Oximetry 98 100 Oxygen Delivery Method Room Air Room Air Oxygen Flow Rate 08/11/23 04:13 08/11/23 05:00 08/11/23 06:00 Temperature Pulse Rate 82 81 Respiratory Rate 18 18 16 Blood Pressure 170/77 170/77 O2 Sat by Pulse Oximetry 100 99 Oxygen Delivery Method Room Air Room Air Oxygen Flow Rate 08/11/23 07:00 Temperature Pulse Rate Respiratory Rate Blood Pressure O2 Sat by Pulse Oximetry Oxygen Delivery Method Room Air Oxygen Flow Rate Labs: Laboratory Last Values WBC 10.1 X10^3/uL (3.6-10.0) H 08/10/23 07:13 RBC 3.66 X10^6/uL (3.5-5.4) 08/10/23 07:13 Hgb 11.0 g/dL (12.0-16.0) L 08/10/23 07:13 Hct 33.1 % (36.0-47.0) L 08/10/23 07:13 MCV 90.3 fL (80.0-100.0) 08/10/23 07:13 MCH 29.9 pg (27.0-34.0) 08/10/23 07:13 MCHC 33.1 g/dL (33.0-35.0) 08/10/23 07:13 RDW 13.6 % (11.6-16.5) 08/10/23 07:13 Plt Count 299 X10^3/uL (150.0-450.0) 08/10/23 07:13 MPV 8.7 fL (7.4-11.0) 08/10/23 07:13 Neut % (Auto) 70.9 % (42.0-75.0) 08/10/23 07:13 Lymph % (Auto) 18.4 % (21.0-51.0) L 08/10/23 07:13 [place] % (Auto) 7.4 % (0.0-13.0) 08/10/23 07:13 Eos % (Auto) 2.6 % (0.9-2.9) 08/10/23 07:13 Baso % (Auto) 0.7 % (0.2-1.0) 08/10/23 07:13 Neut # (Auto) 7.1 x10^3/uL (2.2-4.8) H 08/10/23 07:13 Lymph # (Auto) 1.9 X10^3/uL (1.3-2.9) 08/10/23 07:13 [place] # (Auto) 0.7 x10^3/uL (0.3-0.8) 08/10/23 07:13 Eos # (Auto) 0.3 x10^3/uL (0.0-0.2) H 08/10/23 07:13 Baso # (Auto) 0.1 X10^3/uL (0.0-0.1) 08/10/23 07:13 Absolute Nucleated RBC 0.1 /100WBC 08/10/23 07:13 PT 13.8 SECONDS (11.8-14.3) 08/07/23 15:14 INR Target Range - 08/07/23 15:14 INR 1.08 (0.8-1.3) 08/07/23 15:14 APTT 162.7 SECONDS (22.9-36.5) H* 08/10/23 13:09 PTT Comment - 08/10/23 13:09 Sodium 139 mmol/L (136-145) 08/10/23 07:13 Corrected Sodium 142 mmol/L (136-145) 08/10/23 07:13 Potassium 4.0 mmol/L (3.5-5.1) 08/10/23 07:13 Chloride 108 mmol/L (98-107) H 08/10/23 07:13 Carbon Dioxide 23.7 mmol/L (21-32) 08/10/23 07:13 BUN 22 mg/dL (7-18) H 08/10/23 07:13 Creatinine 1.71 mg/dL (0.55-1.02) H 08/10/23 07:13 Est GFR (MDRD) Af Amer 40 (>60) L 08/10/23 07:13 Est GFR (MDRD) Non-Af 33 (>60) L 08/10/23 07:13 Glucose 226 mg/dL (65-99) H 08/10/23 07:13 POC Glucose (mg/dL) 303 mg/dL (65-99) H 08/11/23 05:09 Calcium 7.8 mg/dL (8.5-10.1) L 08/10/23 07:13 Corrected Calcium 9.1 mg/dL (8.5-10.1) 08/10/23 07:13 Total Bilirubin 0.10 mg/dL (0.2-1.0) L 08/10/23 07:13 AST 13 Units/L (15-37) L 08/10/23 07:13 ALT 9 Units/L (12-78) L 08/10/23 07:13 Alkaline Phosphatase 122 Units/L (46-116) H 08/10/23 07:13 Total Protein 6.7 g/dL (6.4-8.2) 08/10/23 07:13 Albumin 2.4 g/dL (3.4-5.0) L 08/10/23 07:13 Globulin 4.3 g/dL (2.5-4.5) 08/10/23 07:13 Albumin/Globulin Ratio 0.6 Ratio (1.1-2.1) L 08/10/23 07:13 Reason For Visit: CRITICAL LIMB THREATENING [place] RIGHT LEG Discharge Date Discharge Date: 08/11/23 Discharge Diagnosis All Active Problems (Updated 08/07/23 @ 21:16 by Alex Carbajal) Atherosclerosis of [place] arteries of extremities with rest pain, right leg (Acute) CKD (chronic kidney disease) stage 3, GFR 30-59 ml/min (Acute) Dyslipidemia (Acute) Tobacco abuse (Acute) Old myocardial infarction (Acute) Type 2 diabetes mellitus without complications (Acute) Plan of Treatment: Continue with present treatment and follow up plan. Pt is to keep follow up appointment as instructed and take medications as ordered. Discharge Medications Discharge Medications: Sulfa (Sulfonamide Antibiotics) [SULFA] Allergy (Verified 07/25/23 06:49) her usual home medications Aspirin 81 mg po daily Xarelto 2.5 mg po BID Discharge Disposition Assessment: see hospital course Discharge Plan Discharge Plan Hospital Course: 52 year old female with history of coronary artery disease status post CABG in the past. Also with diabetes and hypertension and history of left below knee amputation. She presented several weeks ago with rest pain of the right leg and several weeks ago underwent atherectomy and drug-coated balloon angioplasty of the right superficial femoral artery as well as the stenting of the left iliac artery. Initially she had relief of pain but returned back with rest pain and CT angiogram is consistent with complete occlusion of the right superficial femoral artery. She was maintained on a Heparin drip and taken to the operating Suite on August 10 where she underwent atherectomy and drug-coated stenting of the occluded right superficial femoral artery. She has done well post-proc edure and will be discharged home on her usual medications plus Xarelto 2.5 mg BID and daily aspirin 81 mg daily. She will follow up with me in one week. Patient Disposition: 01 HOME, SELF-CARE Condition: Stable Health Concerns: Post Hospitalization: new medications and changes needed to prevent readmission or further decline. Pt educated and given instructions on all concerns. Care Plan Goals: Problem: Altered Tissue Perfusion Goal: Adequate Tissue Perfusion Instructions: Follow provided instructions. Follow up with primary physician as directed. Contact primary care physician or report to the closest Emergency Room if condition worsens. Plan of Treatment: Continue with present treatment and follow up plan. Pt is to keep follow up appointment as instructed and take medications as ordered. Assessment: see hospital course Prescription drug monitoring program results: PDMP reviewed and no concerns identified Follow ups/Referrals Follow ups/Referrals: Alex Carbajal [STAFF PHYSICIAN] - 1 WEEK Instructions Instructions: Steps to Quit Smoking, [id number], Atherosclerosis, Endovascular Therapy for Peripheral Vascular Disease, Care After, Endovascular Therapy for Peripheral Vascular Disease Stand Alone Forms: Post Hospital Follow Up Care
[2023-08-11 11:00] VITALS: BP 156/77; PULSE 82; RESP 24; TEMP 97.6; O2SAT 97
--- NOTE | 2023-08-15 21:53 | DR.OPNOTE ---
OP NOTE Pre-Op Diagnosis: critical ischemia right leg Post-Op Diagnosis: same Procedure Date Date Of Procedure: 08/10/23 Procedure: PROCEDURE : DIAGNOSTIC AORTOGRAM, DIAGNOSTIC ARTERIOGRAM RIGHT LEG, ATHERECTOMY AND DRUG COATED STENTING OF RIGHT SUPERFICIAL FEMORAL ARTERY USING 3 DRUG COATED STENTS NARRATIVE : The patient was taken to the operative suite and placed in the supine position. The left groin and entire right leg were prepped and draped in sterile fashion. The patient was given intravenous sedation supervised by myself. Time out for the procedure obtained. Ultrasound used to identify the left femoral artery and the skin overlying it infiltrated with 0.5% Marcaine. Ultrasound then used to guide puncture of the left femoral artery and a 0.012 inch guide wire was placed. Incision made over the guide wire at the skin edge with a # 11 knife blade and a micro sheath placed over the guide wire into the left femoral artery. The small guidewire exchanged for a 0.035 inch Advantage glide wire and the micro sheath exchanged for a 5 Fr vascular sheath Patient given 5000 units of intravenous heparin. Omni catheter was placed over the guide wire into the aorta and diagnostic aortogram carried out with the power injector showing normal aorta and iliac arteries . Omni catheter was used to steer the guide wire down the right common iliac artery to the distal right external iliac artery . Omni catheter was exchanged for a Solen catheter and sequential arteriograms carried out of the right lower extremity showing complete occlusion of the entire right superficial femoral artery with reconstitution of the right popliteal artery with 3 vessel runoff to the right foot . The 5 Fr sheath in the left groin in exchanged for a 7 Fr Catapult sheath which was parked in the distal right external iliac artery . Solen catheter and the guide wire were used to traverse the arteries of the right leg ultimately ending in the right peroneal artery . This was selective catheterization. 0.035 inch wire removed and exchanged for a 0.014 inch wire. Over this wire we placed the Jet Stream atherectomy device and performed atherectomy of the entire right superficial femoral artery At this point we places two 6mmx 120 mm Kendra drug coated stents end to end with 3 mm overlap to cover the distal and middle superficial femoral artery and them most proximally place a 6 mm x 80 mm Kendra drug coated stent proximally with over lap of the middle stent all the way to the right common femoral ,superficial femoral artery junction . The stents were balloon dilated with a [place] 5 mmx 200 mm stent. At the completion of this a follow up arteriogram showed excellent result . All wires and devices removed. The 7 Fr sheath was pulled back into the aorta and a 0.035 inch wire placed. The Catapult sheath exchanged for an Angioseal device used to close the puncture of the left femoral artery. .Dressing applied to the left groin. The patient taken back to the ICU in good condition. Type of Anesthesia: Local (0.5% Marcaine ) Anesthesia Comment: plus MAC Findings: Completely occluded right superficial femoral artery with reconstitution of the right popliteal artery and 3 vessel runoff right foot. Type of Fluids Used:: Lactated Ringers Total Amount of Fluid Infused:: 700cc Urine output: 600 cc EBL: 100cc Hardware: 6x 120 mm Kendra stents x 2, 6x 80 mm Kendra stent Complications:: none Needle/Sponge Count:: correct Disposition/Condition: Pt. tolerated procedure without difficulty. Taken to [facility] in stable condition.
== END 2023-08-11 12:00 | disposition home or self-care (01) | DRG 272 ==
LOC: ICU 14:21
PROVIDERS: ADMIT Surgery; ATTEND Surgery
DX: Z89.512 Acquired absence of left leg below knee; J44.9 Chronic obstructive pulmonary disease, unspecified; R79.1 Abnormal coagulation profile; E78.2 Mixed hyperlipidemia; I70.221 Atherosclerosis of native arteries of extremities with rest pain, right leg; R06.02 Shortness of breath; I25.10 Atherosclerotic heart disease of native coronary artery without angina pectoris; I25.2 Old myocardial infarction; E11.65 Type 2 diabetes mellitus with hyperglycemia; I12.9 Hypertensive chronic kidney disease with stage 1 through stage 4 chronic kidney disease, or unspecified chronic kidney disease; N18.30 Chronic kidney disease, stage 3 unspecified